=== PATIENT | female | born 1950 | race African-American/Black ===

== ENCOUNTER → 2017-10-13 | Outpatient (CLI) | payer MEDICARE ==
[2016-04-25 14:27] VITALS: BP 169/96
[~2017-10-13] MED LIST: AMLO5TAB2 PO; CLON0.1T PO; METF500T4 PO; NITR100C62 PO; PRED2.5T PO; PRED20TA PO; TACR1CAP4 PO; [UNRECOGNIZED DRUG - OTHER]
--- NOTE | 2017-10-14 08:51 | RAD ---
Indication: Elevated parathyroid hormone. Patient was administered 21.8 mCi of technetium 99m sestamibi and imaging over the neck and upper chest was performed. The early images demonstrate fairly homogeneous uptake within both lobes of the thyroid gland. There is salivary gland uptake as well. Later images demonstrate washout of activity from the thyroid gland. There are 2 areas of persistent rounded uptake. This involves the lower pole of the right lobe as well as the lower pole of the left lobe of the thyroid. These are suspicious for adenomas. There is mild residual uptake in the mid aspect of the right lobe of the thyroid as well, indeterminate. Impression: Findings suspicious for bilateral parathyroid adenomas. These appear to be adjacent to the lower poles of the right and left lobes of the thyroid gland. There is indeterminate activity in the region of the mid aspect of the right lobe of the thyroid.
== END | disposition home or self-care (01) ==
LOC: NM 09:20
PROVIDERS: ATTEND Internal Medicine Nephrology
DX: E21.2 Other hyperparathyroidism (principal)
CPT/HCPCS: 78070; 96374; A9500

== ENCOUNTER → 2017-12-22 | Outpatient (CLI) | payer MEDICARE | END | disposition home or self-care (01) | LOC: KCIC US 14:28 | DX: E04.2 Nontoxic multinodular goiter (principal); E21.2 Other hyperparathyroidism | CPT/HCPCS: 76536 ==

== ENCOUNTER → 2018-05-01 | Outpatient (CLI) | payer MEDICARE | END | disposition home or self-care (01) | LOC: KCIC US 11:32 | DX: Z48.22 Encounter for aftercare following kidney transplant (principal); I12.9 Hypertensive chronic kidney disease with stage 1 through stage 4 chronic kidney disease, or unspecified chronic kidney disease; N18.3 Chronic kidney disease, stage 3 (moderate); E11.9 Type 2 diabetes mellitus without complications; Z94.0 Kidney transplant status | CPT/HCPCS: 76770 ==

== ENCOUNTER 2019-02-14 07:02 | Emergency (ER) | payer MEDICARE ==
[~2019-02-14] VITALS: Ht 170.2 cm; Wt 81.6 kg
[~2019-02-14 07:02] MED LIST changes: +AMLO5TAB10 PO; -AMLO5TAB2 PO; +METF500T16 PO; -METF500T4 PO
[2019-02-14 07:45] LABS: BASO % 1 % (0-3); EOS # 0.1 x10^3/uL (0.0-0.7); EOS % 2 % (0-3); HEMATOCRIT 43.4 % (36.0-47.0); HEMOGLOBIN 14.1 g/dL (12.0-15.5); LYMPH # 1.8 x10^3/uL (1.0-4.8); LYMPH % 31 % (24-48); MEAN CORPUSCULAR HEMOGLOBIN 30 pg (25-35); MEAN CORPUSCULAR HGB CONC 33 g/dL (31-37); MEAN CORPUSCULAR VOLUME 92 fL (79-100); MONO # 0.7 x10^3/uL (0.0-1.1); MONO % 12 % (0-9); NEUT # 3.2 x10^3uL (1.8-7.7); NEUT % 55 % (31-73); PLATELET COUNT 111 x10^3/uL (140-400); RED BLOOD COUNT 4.71 x10^6/uL (3.50-5.40); RED CELL DISTRIBUTION WIDTH 13.4 % (11.5-14.5); WHITE BLOOD COUNT 5.8 x10^3/uL (4.0-11.0)
[2019-02-14 07:56] LABS: CALCIUM 9.9 mg/dL (8.5-10.1); CREATININE 1.8 mg/dL (0.6-1.0); POTASSIUM 3.6 mmol/L (3.5-5.1)
[2019-02-14 08:01] LABS: ALBUMIN 3.8 g/dL (3.4-5.0); ALBUMIN/GLOBULIN RATIO 1.3 (1.0-1.7); TOTAL BILIRUBIN 0.4 mg/dL (0.2-1.0); TOTAL PROTEIN 6.7 g/dL (6.4-8.2)
[2019-02-14 08:15] LABS: BILIRUBIN,URINE NEGATIVE (NEG); CLARITY,URINE CLEAR; COLOR,URINE YELLOW; NITRITE,URINE NEGATIVE (NEG); PROTEIN,URINE 100 mg/dL (NEG-TRACE)
[2019-02-14] MEDS ORDERED: IV NORMAL SALINE 1000ML BAG 1,000 ML IV ONE (08:15)
[2019-02-14] MEDS ORDERED: ONDANSETRON PF 4 MG/2 ML VIAL. IV ONE (08:15)
[2019-02-14 08:18] LABS: BACTERIA,URINE 0 /HPF (0-FEW); RBC,URINE 0 /HPF (0-2); SQUAMOUS EPITHELIAL CELL,UR FEW /LPF
--- NOTE | 2019-02-14 08:32 | PHYS DOC ---
Past Medical History Past Medical History: Hypertension, Renal Disease Additional Past Medical Histor: PT STATES BORDERLINE DIABETES Past Surgical History: Appendectomy, Other Additional Past Surgical Histo: Kidney transplant Alcohol Use: None Drug Use: None Adult General Chief Complaint Chief Complaint: FLANK PAIN [facility] HPI Patient is a 68 year old female who presents with complaining of right flank pain. Patient complaining of intermittent episodes of right flank pain for one month that usually happen in the morning and last for several hours as an aching pain and rated her pain 7/10. Patient states the pain sometimes radiated to right lower quadrant. Patient complaining of nausea without vomiting and urinary frequency and dysuria. Patient complaining of not feeling good and weakness for the last 2 or 3 weeks. Patient denies fever, chills, vomiting, diarrhea and constipation, chest pain and shortness of breath. Patient complaining of decrease of urine output. Patient had history of kidney transplant in 2009 and states she seen by her physician scientist 4 months ago and his creatinine was 1.6. Review of Systems Review of Systems Constitutional: Denies fever or chills [] Eyes: Denies change in visual acuity, redness, or eye pain [] HENT: Denies nasal congestion or sore throat [] Respiratory: Denies cough or shortness of breath [] Cardiovascular: No additional information not addressed in HPI [] GI: Denies abdominal pain, nausea, vomiting, bloody stools or diarrhea [] : Reports dysuria and flank pain Musculoskeletal: Denies back pain or joint pain [] Integument: Denies rash or skin lesions [] Neurologic: Denies headache, focal weakness or sensory changes [] Endocrine: Denies polyuria or polydipsia [] All other systems were reviewed and found to be within normal limits, except as documented in this note. Current Medications Current Medications Current Medications Medications (Trade) Dose Ordered Sig/Clive Start Time Stop Time Status Last Admin Dose Admin Ondansetron HCl (Zofran) 4 mg 1X ONCE 02/14/19 08:15 02/14/19 08:20 DC 02/14/19 08:25 4 MG Sodium Chloride 1,000 ml @ 1,000 mls/hr 1X ONCE 02/14/19 08:15 02/14/19 09:14 02/14/19 08:26 1,000 MLS/HR Allergies Allergies Allergies Coded Allergies Type Severity Reaction Last Updated Verified Sulfa (Sulfonamide Antibiotics) Allergy Unknown 02/14/19 No Physical Exam Physical Exam Constitutional: Well developed, well nourished, mild distress, non-toxic appearance. [] HENT: Normocephalic, atraumatic, oropharynx moist. Eyes: PERRLA, EOMI, conjunctiva normal, no discharge. [] Neck: Normal range of motion, no tenderness, supple, no stridor. [] Cardiovascular:Heart rate regular rhythm, no murmur [] Lungs & Thorax: Bilateral breath sounds clear to auscultation [] Abdomen: Bowel sounds normal, soft, no tenderness, no masses, no pulsatile masses. [] Skin: Warm, dry, no erythema, no rash. [] Back: No tenderness, no CVA tenderness. [] Extremities: No tenderness, no cyanosis, no clubbing, ROM intact, no edema. [] Neurologic: Alert and oriented X 3, normal motor function, normal sensory function, no focal deficits noted. [] Psychologic: Affect normal, judgement normal, mood normal. [] Current Patient Data Vital Signs Vital Signs Date Time Temp Pulse Resp B/P (MAP) Pulse Ox O2 Delivery O2 Flow Rate FiO2 02/14/19 08:30 60 165/88 (113) 99 02/14/19 07:44 97.9 16 Room Air 97.9 Lab Values Laboratory Tests Test 02/14/19 07:30 02/14/19 08:00 White Blood Count 5.8 x10^3/uL (4.0-11.0) Red Blood Count 4.71 x10^6/uL (3.50-5.40) Hemoglobin 14.1 g/dL (12.0-15.5) Hematocrit 43.4 % (36.0-47.0) Mean Corpuscular Volume 92 fL (79-100) Mean Corpuscular Hemoglobin 30 pg (25-35) Mean Corpuscular Hemoglobin Concent 33 g/dL (31-37) Red Cell Distribution Width 13.4 % (11.5-14.5) Platelet Count 111 x10^3/uL (140-400) L Neutrophils (%) (Auto) 55 % (31-73) Lymphocytes (%) (Auto) 31 % (24-48) Monocytes (%) (Auto) 12 % (0-9) H Eosinophils (%) (Auto) 2 % (0-3) Basophils (%) (Auto) 1 % (0-3) Neutrophils # (Auto) 3.2 x10^3uL (1.8-7.7) Lymphocytes # (Auto) 1.8 x10^3/uL (1.0-4.8) Monocytes # (Auto) 0.7 x10^3/uL (0.0-1.1) Eosinophils # (Auto) 0.1 x10^3/uL (0.0-0.7) Basophils # (Auto) 0.0 x10^3/uL (0.0-0.2) Platelet Estimate Pending Sodium Level 139 mmol/L (136-145) Potassium Level 3.6 mmol/L (3.5-5.1) Chloride Level 102 mmol/L (98-107) Carbon Dioxide Level 25 mmol/L (21-32) Anion Gap 12 (6-14) Blood Urea Nitrogen 19 mg/dL (7-20) Creatinine 1.8 mg/dL (0.6-1.0) H Estimated GFR (Cockcroft-Gault) 34.0 BUN/Creatinine Ratio 11 (6-20) Glucose Level 172 mg/dL (70-99) H Lactic Acid Level 1.2 mmol/L (0.4-2.0) Calcium Level 9.9 mg/dL (8.5-10.1) Total Bilirubin 0.4 mg/dL (0.2-1.0) Aspartate Amino Transferase (AST) 15 U/L (15-37) Alanine Aminotransferase (ALT) 21 U/L (14-59) Alkaline Phosphatase 69 U/L (46-116) Total Protein 6.7 g/dL (6.4-8.2) Albumin 3.8 g/dL (3.4-5.0) Albumin/Globulin Ratio 1.3 (1.0-1.7) Lipase 207 U/L (73-393) Urine Color Yellow Urine Clarity Clear Urine pH 7.0 Urine Specific [place] 1.015 Urine Protein 100 mg/dL (NEG-TRACE) Urine Glucose (UA) Negative mg/dL (NEG) Urine Ketones (Stick) Negative mg/dL (NEG) Urine Blood Negative (NEG) Urine Nitrite Negative (NEG) Urine Bilirubin Negative (NEG) Urine Urobilinogen Dipstick 1.0 mg/dL (0.2 mg/dL) Urine Leukocyte Esterase Large (NEG) Urine RBC 0 /HPF (0-2) Urine WBC 5-10 /HPF (0-4) Urine Squamous Epithelial Cells Few /LPF Urine Bacteria 0 /HPF (0-FEW) Laboratory Tests 02/14/19 07:30 Laboratory Tests 02/14/19 07:30 EKG EKG [] Radiology/Procedures Radiology/Procedures [facility] [address] [place] [address] IMAGING REPORT Signed PATIENT: VINI LYNCH ACCOUNT: [id number] : 1950 LOCATION: ER AGE: 68 SEX: F EXAM STATUS: REG ER ORD. PHYSICIAN: NICHOLAS LONGO MD REASON: right flank pain, history of kidney transplant PROCEDURE: CT ABDOMEN PELVIS WO CONTRAST Abdominal and Pelvis CT, Without Contrast: History: Right flank pain, history of renal transplant. Comparison: None. Procedure: Axial images are obtained of the abdomen and pelvis, without IV or oral contrast. CT Abdomen without Contrast: Findings: Evaluation of solid organs is limited without contrast. Evaluation of stomach and bowel is limited without oral contrast. There are numerous cysts scattered throughout the liver and the kidneys consistent with adult polycystic renal disease. A few of the cysts are partially calcified or hemorrhagic. The adrenals spleen and pancreas appear normal. There is no free air or free fluid. There is no lymphadenopathy. Impression: Please see CT Pelvis without Contrast. End Impression. CT Pelvis without Contrast: Findings: The urinary bladder appears normal. There is no free fluid. There is no lymphadenopathy. There is no pericolonic inflammation identified. The bulky fibroid uterus appears unchanged. Mild prominence of the ovaries was not appreciated previously. The right ovary is larger than the left and measures approximately 4.6 x 2.2 cm. There is a right pelvic transplant kidney which appears normal. Impression: 1. Numerous renal cysts and kidney cysts consistent with adult polycystic kidney disease. This appears stable. 2. Transplanted right pelvic kidney appears stable. 3. Bulky fibroid uterus seen previously. 4. Mild prominence of the ovaries bilaterally not appreciate previously could be secondary to ovarian cysts. Recommend correlation with CA-125. End impression PQRS Compliance Statement: One or more of the following individualized dose reduction techniques were utilized for this examination: 1. Automated exposure control 2. Adjustment of the mA and/or kV according to patient size 3. Use of iterative reconstruction technique Electronically signed by: Sagrario Alexandra III, MD (02/14/2019 8:33 AM) [facility] DICTATED and SIGNED BY: SAGRARIO ALEXANDRA III, MD DATE: 02/14/19 0833 Course & Med Decision Making Course & Med Decision Making Pertinent Labs and Imaging studies reviewed. (See chart for details) Dilution of patient in ER showed 68-year-old female patient with history of kidney transplant and complaining of right flank pain and urinary frequency and dysuria for one month. Patient had unremarkable physical exam. Blood pressure was 140s and 160s while she was in ER. Blood tests was unremarkable except for mild elevation of blood sugar. UA showed moderate UTI. CT scan abdomen and pelvis did not show acute finding and showed ovarian cyst with recommendation of more evaluation including CA 125. Patient didn't want to have pain medication in ER and treated with IV fluid and Zofran and felt better. Patient was advised to follow-up with her primary care physician is/[facility] for evaluation of ovarian cysts and follow up with her physician scientist regarding mild elevation of creatinine at 1.8 from the previous one at 1.6. Dragon Disclaimer Dragon Disclaimer This electronic medical record was generated, in whole or in part, using a voice recognition dictation system. Departure Departure Impression: Primary Impression: Right flank pain Additional Impressions: Urinary tract infection Hyperglycemia History of renal transplant Renal insufficiency, mild Ovarian cyst Uncontrolled hypertension Generalized weakness Disposition: 01 HOME, SELF-CARE (at 0900) Condition: IMPROVED Referrals: NO PCP (PCP) Patient Instructions: Flank Pain, Ovarian Cyst, Urinary Tract Infection, Weakness Additional Instructions: Drink plenty of liquids Follow-up with your primary care physician in 3-5 days for evaluation of ovarian cyst Return to ER if not getting better Follow-up with your physician scientist in 2-3 days Scripts Ondansetron Hcl (ZOFRAN) 4 Mg Tablet 1 TAB PO PRN Q6-8HRS for nausea, #12 TAB Prov: NICHOLAS LONGO MD 02/14/19 Hydrocodone/Apap 5-325 (NORCO 5-325 TABLET) 1 Each Tablet 1 TAB PO PRN Q6HRS PRN for PAIN, #10 TAB 0 Refills Prov: NICHOLAS LONGO MD 02/14/19 Ciprofloxacin Hcl (CIPRO) 250 Mg Tablet 1 TAB PO BID for infection, #14 TAB Prov: NICHOLAS LONGO MD 02/14/19 Problem Qualifiers Additional Impressions: Urinary tract infection Urinary tract infection type: site unspecified Hematuria presence: without hematuria Qualified Codes: N39.0 - Urinary tract infection, site not specified Ovarian cyst Laterality: unspecified laterality Qualified Codes: N83.209 - Unspecified ovarian cyst, unspecified side NICHOLAS LONGO MD Feb 14, 2019 08:32
--- NOTE | 2019-02-14 08:36 | RAD ---
Abdominal and Pelvis CT, Without Contrast: History: Right flank pain, history of renal transplant. Comparison: None. Procedure: Axial images are obtained of the abdomen and pelvis, without IV or oral contrast. CT Abdomen without Contrast: Findings: Evaluation of solid organs is limited without contrast. Evaluation of stomach and bowel is limited without oral contrast. There are numerous cysts scattered throughout the liver and the kidneys consistent with adult polycystic renal disease. A few of the cysts are partially calcified or hemorrhagic. The adrenals spleen and pancreas appear normal. There is no free air or free fluid. There is no lymphadenopathy. Impression: Please see CT Pelvis without Contrast. End Impression. CT Pelvis without Contrast: Findings: The urinary bladder appears normal. There is no free fluid. There is no lymphadenopathy. There is no pericolonic inflammation identified. The bulky fibroid uterus appears unchanged. Mild prominence of the ovaries was not appreciated previously. The right ovary is larger than the left and measures approximately 4.6 x 2.2 cm. There is a right pelvic transplant kidney which appears normal. Impression: 1. Numerous renal cysts and kidney cysts consistent with adult polycystic kidney disease. This appears stable. 2. Transplanted right pelvic kidney appears stable. 3. Bulky fibroid uterus seen previously. 4. Mild prominence of the ovaries bilaterally not appreciate previously could be secondary to ovarian cysts. Recommend correlation with CA-125. End impression PQRS Compliance Statement: One or more of the following individualized dose reduction techniques were utilized for this examination: 1. Automated exposure control 2. Adjustment of the mA and/or kV according to patient size 3. Use of iterative reconstruction technique Electronically signed by: Manjeet Yuen III, MD (02/14/2019 8:33 AM) [facility]
[2019-02-14] MEDS ORDERED: HYDR-3164 PO (09:05)
[2019-02-14] MEDS ORDERED: CIPR250T30 PO (09:05)
[2019-02-14] MEDS ORDERED: ONDA4TAB7 PO (09:05)
[2019-02-14 09:08] LABS: PLT ESTIMATE ADEQUATE (ADEQUATE)
[2019-02-14 09:45] VITALS: BP 161/96
== END 2019-02-14 09:50 | disposition home or self-care (01) ==
LOC: ER 07:02
DX: N83.201 Unspecified ovarian cyst, right side (principal); N83.202 Unspecified ovarian cyst, left side; N28.9 Disorder of kidney and ureter, unspecified; R53.1 Weakness; N28.1 Cyst of kidney, acquired; K76.89 Other specified diseases of liver; D25.9 Leiomyoma of uterus, unspecified; I10 Essential (primary) hypertension; R73.9 Hyperglycemia, unspecified; Z94.0 Kidney transplant status; Z90.89 Acquired absence of other organs; Z88.2 Allergy status to sulfonamides
CPT/HCPCS: 36415; 74176; 80053; 81001; 83605; 83690; 85025; 87086; 96374; 99285; J2405; J7030

== ENCOUNTER → 2019-07-06 | Outpatient (CLI) | payer MEDICARE ==
[~2019-07-06] MED LIST changes: +CIPR250T30 PO; +HYDR-3164 PO; +ONDA4TAB7 PO
--- NOTE | 2019-07-06 14:48 | KCIC ---
PELVIS COMPLETE History: Acute pelvic pain for 2 months, ovarian cyst Comparison: February 14, 2019 CT abdomen pelvis exam Findings: Multiple transabdominal sonographic images of the pelvis are submitted. Endometrium measured about 0.3 cm in thickness. There is a mass of the posterior uterus in the myometrium although approximating the endometrium about 2.7 x 3 x 2.5 cm. There is also probably partially calcified mass of the anterior left uterine myometrium about 1.5 x 1.4 x 1.5 cm also in close approximation to the endometrium. There is another mass of the posterior right myometrium up to about 2.5 cm in size. Right ovary measured 2.2 x 1.1 x 1.4 cm, normal low resistance vascularity. Left ovary could not be visualized. No free fluid is demonstrated. Impression: 1. There are uterine masses, leiomyomas considered most likely. 2. Left ovary could not be visualized. Electronically signed by: Melo Wheeler MD (07/06/2019 2:45 PM) [id number]
== END | disposition home or self-care (01) ==
LOC: KCIC US 09:22
PROVIDERS: ATTEND Obstetrics & Gynecology
DX: N85.8 Other specified noninflammatory disorders of uterus (principal)
CPT/HCPCS: 76856

== ENCOUNTER 2020-11-14 09:24 | Emergency (ER) | payer MEDICARE ==
[~2020-11-14] VITALS: Ht 172.7 cm; Wt 74.0 kg
[~2020-11-14 09:24] MED LIST changes: +AMLO-186 PO; -AMLO5TAB10 PO; -TACR1CAP4 PO; +TACR1CAP5 PO
[2020-11-14] MEDS ORDERED: ONDANSETRON PF 4 MG/2 ML VIAL. IVP ONE (10:00)
--- NOTE | 2020-11-14 10:04 | PHYS DOC ---
Past Medical History Past Medical History: Hypertension, Renal Disease, Other Additional Past Medical Histor: PT STATES BORDERLINE DIABETES, Polycystic kidney disease. Past Surgical History: Appendectomy, Other Additional Past Surgical Histo: Kidney transplant Smoking Status: Never Smoker Alcohol Use: None Drug Use: None General Adult EDM: Chief Complaint: NAUSEA/VOMITING/DIARRHA HPI: HPI: Patient is a 70 year old female presents emergency department complaining of nausea for the past 2 weeks, patient states she has seen her kidney transplant doctor and her visualizer last Friday who sent her to [facility] for some lab work. Patient states she did not do this because she feels like there is something more going on that she decided to come to the emergency room to figure it out. Patient states that she has periods of constipation, has not seen any blood in her stool, however sees bright red blood when she wipes. Patient states she does not know if it is coming vaginally or from her rectum. Patient denies any urinary tract infection type signs and symptoms, denies seeing blood in her urine. Patient states she has been having off-and-on chest pains and off-and-on shortness of breath for the past month or so. Patient denies chest pain, denies shortness of breath at this time. Patient patient states she gets nasal congestion and chest congestion off and on for the past couple of months. Patient denies any nasal congestion or chest congestion today. Patient states she gets off-and-on headaches for the past month or so but denies headaches today. Patient reports she had a kidney transplant with an appendectomy in May of 2010. Patient denies any recent fever or chills. Patient denies swelling to her extremities. Patient denies back pain. Review of Systems: Review of Systems: Constitutional: Denies fever or chills. [] Eyes: Denies change in visual acuity. [] HENT: Denies nasal congestion or sore throat. [] Respiratory: Denies cough or shortness of breath. [] Cardiovascular: Denies chest pain or edema. [] GI: Denies abdominal pain, nausea, vomiting, bloody stools or diarrhea. [] : Denies dysuria. [] Musculoskeletal: Denies back pain or joint pain. [] Integument: Denies rash. [] Neurologic: Denies headache, focal weakness or sensory changes. [] Endocrine: Denies polyuria or polydipsia. [] Lymphatic: Denies swollen glands. [] Psychiatric: Denies depression or anxiety. [] Heart Score: HEART Score for Chest Pain: HEART Score for Chest Pain Response (Comments) Value History Slighlty/Non-Suspicious 0 ECG Normal 0 Age > 65 2 Risk Factors No Risk Factors 0 Troponin < Normal Limit 0 Total 2 Risk Factors: Risk Factors: DM, Current or recent (<one month) smoker, HTN, HLP, family history of CAD, obesity. Risk Scores: Score 0 - 3: 2.5% MACE over next 6 weeks - Discharge Home Score 4 - 6: 20.3% MACE over next 6 weeks - Admit for Clinical Observation Score 7 - 10: 72.7% MACE over next 6 weeks - Early Invasive Strategies Current Medications: Please see nursing documentation for current med list. Current Medications Medications (Trade) Dose Ordered Sig/Clive Start Time Stop Time Status Last Admin Dose Admin Ondansetron HCl (Zofran) 4 mg 1X ONCE 11/14/20 10:00 11/14/20 10:01 UNV Allergies: Allergies: Allergies Coded Allergies Type Severity Reaction Last Updated Verified Sulfa (Sulfonamide Antibiotics) Allergy Unknown 02/14/19 No Physical Exam: PE: Constitutional: Well developed, well nourished, no acute distress, non-toxic appearance. HENT: Normocephalic, atraumatic, bilateral external ears normal, oropharynx moist, no oral exudates, nose normal. Eyes: PERRLA, EOMI, conjunctiva normal, no discharge. Neck: Normal range of motion, no tenderness, supple, no stridor. Cardiovascular:Heart rate irregular regular rhythm, no murmur. Lungs & Thorax: Bilateral breath sounds clear to auscultation all lung singh. Abdomen: Bowel sounds normal, soft, no tenderness, no masses, no pulsatile masses. Old surgical scar right lower quadrant area. Skin: Warm, dry, no erythema, no rash. Back: No tenderness, no CVA tenderness. Extremities: No tenderness, no cyanosis, no clubbing, ROM intact, no edema. Neurologic: Alert and oriented X 3, normal motor function, normal sensory function, no focal deficits noted. Psychologic: Affect normal, judgement normal, mood normal. Current Patient Data: Labs: Laboratory Tests Test 11/14/20 10:27 11/14/20 11:00 White Blood Count 3.6 x10^3/uL Red Blood Count 4.50 x10^6/uL Hemoglobin 13.4 g/dL Hematocrit 41.8 % Mean Corpuscular Volume 93 fL Mean Corpuscular Hemoglobin 30 pg Mean Corpuscular Hemoglobin Concent 32 g/dL Red Cell Distribution Width 14.4 % Platelet Count 112 x10^3/uL Neutrophils (%) (Auto) 66 % Lymphocytes (%) (Auto) 19 % Monocytes (%) (Auto) 13 % Eosinophils (%) (Auto) 1 % Basophils (%) (Auto) 0 % Neutrophils # (Auto) 2.4 x10^3/uL Lymphocytes # (Auto) 0.7 x10^3/uL Monocytes # (Auto) 0.5 x10^3/uL Eosinophils # (Auto) 0.0 x10^3/uL Basophils # (Auto) 0.0 x10^3/uL Sodium Level 139 mmol/L Potassium Level 3.8 mmol/L Chloride Level 108 mmol/L Carbon Dioxide Level 21 mmol/L Anion Gap 10 Blood Urea Nitrogen 15 mg/dL Creatinine 1.8 mg/dL Estimated GFR (Cockcroft-Gault) 33.8 BUN/Creatinine Ratio 8 Glucose Level 152 mg/dL Calcium Level 8.9 mg/dL Phosphorus Level 2.1 mg/dL Magnesium Level 1.3 mg/dL Total Bilirubin 0.4 mg/dL Aspartate Amino Transf (AST/SGOT) 18 U/L Alanine Aminotransferase (ALT/SGPT) 24 U/L Alkaline Phosphatase 75 U/L Troponin I Quantitative < 0.017 ng/mL Total Protein 5.0 g/dL Albumin 2.9 g/dL Albumin/Globulin Ratio 1.4 Urine Collection Type Clean catch Urine Color Yellow Urine Clarity Clear Urine pH 6.5 Urine Specific [place]ola 1.010 Urine Protein >=300 mg/dL Urine Glucose (UA) Negative mg/dL Urine Ketones (Stick) Negative mg/dL Urine Blood Negative Urine Nitrite Negative Urine Bilirubin Negative Urine Urobilinogen Dipstick 0.2 mg/dL Urine Leukocyte Esterase Negative Urine RBC 0 /HPF Urine WBC 0 /HPF Urine Squamous Epithelial Cells Occ /LPF Urine Bacteria 0 /HPF Urine Mucus Slight /LPF Current Medications Medications (Trade) Dose Ordered Sig/Clive Route PRN Reason Start Time Stop Time Status Last Admin Dose Admin Ondansetron HCl (Zofran) 4 mg 1X ONCE IVP 11/14/20 10:00 11/14/20 10:01 DC 11/14/20 10:31 EKG: EKG: EKG performed at 0 958 by ED nursing staff, heart rate 74 bpm normal sinus rhythm with occasional PACs, [place] interval 0.152, QTc interval 0.398, no acute STEMI, no ACS, no acute ischemia appreciated, EKG interpreted by ED attending physician Dr. Butcher [] Radiology/Procedures: Radiology/Procedures: [] Course & Med Decision Making: Course & Med Decision Making Pertinent Labs and Imaging studies reviewed. (See chart for details) 70-year-old female, vital signs reviewed, presents emergency department with multiple complaints. Patient's physical exam unremarkable. EKG, cardiac work- up, constipation work-up was started in the ED, patient was given 4 mg Zofran for nausea. During patient's rectal exam to obtain stool for occult blood, no stool in the rectal vault to obtain specimen, patient stated that she has not noticed any blood on the toilet paper after wiping for greater than 2 months now. Patient's labs equivocal, white blood cell count low most likely related to immunosuppressive medication status post kidney transplant, will have patient follow-up with primary care for further investigation. Upon reevaluation of the patient, patient states her nausea has been relieved and she feels much better now patient now denies any physical complaints or physical symptoms. Discussed radiological findings of constipation with patient, will start on Colace for constipation, patient gave verbal understanding of prescription medication use, follow-up with primary care soon, home care instructions, return to ER precautions and concerns, patient discharged home without incident. Impression: #1 nausea #2 constipation #3 leukopenia #4 PUI Dragon Disclaimer: [place] Disclaimer: This electronic medical record was generated, in whole or in part, using a voice recognition dictation system. Departure Departure Impression: Primary Impression: Nausea Additional Impressions: Constipation Qualified Codes: K59.00 - Constipation, unspecified Leukopenia Qualified Codes: D72.819 - Decreased white blood cell count, unspecified Person under investigation for COVID-19 Disposition: 01 DC HOME SELF CARE/HOMELESS Condition: IMPROVED Referrals: SIIDRO RICHARDS MD (PCP) Patient Instructions: Constipation, Adult Additional Instructions: Take medications as prescribed, follow-up with your primary care doctor soon, please go to [facility] and have your lab work drawn as directed by your neph rologist, please call both your primary care doctor and your visualizer and your kidney transplant physician to let them know you have been started on Colace for constipation. Return to the emergency department for worsening symptoms or other concerns. You have been tested for the COVID-19 virus today, your results should be done within the next 48 hours. I have attached to this document instructions related to the COVID-19 virus. EMERGENCY DEPARTMENT GENERAL DISCHARGE INSTRUCTIONS Thank you for coming to [facility] Emergency Department (ED) today and trusting us with you care. We trust that you had a positive experience in our Emergency Department. If you wish to speak to the department management, you may call the Director at [phone]. YOUR FOLLOW UP INSTRUCTIONS ARE FOLLOWS: 1. Do you have a private Doctor? If you do not have a private doctor, please ask for a resource list of physicians or clinics that may be able to assist you with follow up care. 2. The Emergency Physicain has interpreted your x-rays. The X-Ray specialist will also review them. If there is a change in the findings, you will be notified in 48 hours when at all possible. 3. A lab test or culture has been done, your results will be reviewed and you will be notified if you need a change in treatment. ADDITIONAL INSTRUCTIONS AND INFORMATION: 1. Your care today has been supervised by a physician who is specially trained in emergency care. Many problems require more than one evaluation for a complete diagnosis and treatment. We recommend that you schedule your follow up appointment as recommended to ensure complete treatment of you illness or injury. If you are unable to obtain follow up care and continue to have a problem, or if your condition worsens, we recommend that you return to the ED. 2. We are not able to safely determine your condition over the phone nor are we able to give sound medical advice over the phone. For these safety reasons, if you call for medical advice we will ask you to come to the ED for further evaluation. 3. If you have any questions regarding these discharge instructions please call the ED at [phone]. SAFETY INFORMATION: In the interest of safety, wellness, and injury prevention; we encourage you to wear your sealbelt, if you smoke; quite smoking, and we encourage family to use a protective helmet for bicycling and other sporting events that present an increased risk for head injury. IF YOUR SYMPTOMS WORSEN OR NEW SYMPTOMS DEVELOP, OR YOU HAVE CONCERNS ABOUT YOUR CONDITION; OR IF YOUR CONDITION WORSENS WHILE YOU ARE WAITING FOR YOUR FOLLOW UP APPOINTMENT; EITHER CONTACT YOUR PRIMARY CARE DOCTOR, THE PHYSICIAN WHOSE NAME AND NUMBER YOU WERE GIVEN, OR RETURN TO THE ED IMMEDIATELY. You have been tested for or diagnosed with COVID-19. It is an infection caused by a new type of coronavirus. COVID-19 will cause cold-like or mild flu symptoms in most. It can cause more severe symptoms like problems breathing in some. There is no treatment for COVID-19. The body will clear the infection over time. Self-care will help to ease discomfort. Steps to Take: Self-Care Rest as needed. Healthy habits may help you feel better. Steps include: Choose healthy foods including fruits and vegetables. Drink water throughout the day. Get plenty of sleep each night. If you smoke, try to quit. It may ease breathing. Avoid alcohol. Keep Others Healthy The virus can spread to others. Droplets are released every time you sneeze or cough. The droplets can get into the mouth, nose, or eyes of people near you and lead to infection. To lower the chances of spreading COVID-19 to others: Stay at home until your doctor has said it is safe to leave. If you tested positive this will mean staying isolated until both of the following are true: At least 7 days have passed since the start of illness. You are free of fever for at least 72 hours without the use of medicine. During this time: - Avoid public areas, events, or transportation. Do not return to work or school until your doctor has said it is safe to do so. - Call ahead if you need to go to a medical center. Let them know you may have COVID-19. It will help them guide you where to go. They may also ask you to wear a facemask when you come to the office. - If you call for emergency medical services, let them know you may have COVID- 19. While at home: - Try to avoid close contact with others. Stay about 6 feet away. - If possible, spend most of your time in a separate room from others. - Use a face mask if you will be in close contact with others such as sharing a room or vehicle. - Have someone wipe down common surfaces in the home. Use household product tester fiberglass every day on areas like doorknobs, counters, or sinks. - Cough or sneeze into a tissue. Throw the tissue away right after use. If a tissue is not available, cough or sneeze into your elbow. - Wash your hands often. Wash them after sneezing or coughing. Use soap and water and wash for at least 20 seconds. Alcohol based hand barrel loader and cleaner can be used if soap and water is not available. - Do not prepare food for others. Avoid sharing personal items like forks, spoons, or toothbrushes. - Avoid close contact with pets while you are sick. There is no evidence of the virus passing to pets. This is a safety step until more is known about this virus. Isolation can be frustrating. Social interaction can help. Keep in touch with friends and family through phone and tech options. You can still interact with others in your home, just keep a safe distance of about 6 feet. Follow-up: Your doctors office will check in with you to see if there are any changes in your health. You may be asked to keep track of symptoms to share with them. They will also let you know when you are clear to be in public again. Problems to Look Out For: Contact your doctor if your recovery is not going as you expect. Get emergency care if you have problems such as: - Trouble breathing - Nonstop chest pain or pressure - Changes in awareness, confusion, or problems waking - Lips or face have bluish color - Worsening of symptoms If you think you have an emergency, call for emergency medical services right away. As taken from [facility] Health Scripts Sennosides/Docusate Sodium (Colace 2-in-1 Tablet) 1 Each Tablet 1 TAB PO QHS for CONSTIPATION for 30 Days, #30 TAB 0 Refills Prov: RAJWINDER GONSALEZ APRN 11/14/20 RAJWINDER GONSALEZ APRN Nov 14, 2020 10:04
[2020-11-14 10:45] LABS: CALCIUM 8.9 mg/dL (8.5-10.1); CREATININE 1.8 mg/dL (0.6-1.0); GFR 33.8; POTASSIUM 3.8 mmol/L (3.5-5.1)
[2020-11-14 10:51] LABS: ALBUMIN 2.9 g/dL (3.4-5.0); ALBUMIN/GLOBULIN RATIO 1.4 (1.0-1.7); MAGNESIUM 1.3 mg/dL (1.8-2.4); PHOSPHORUS 2.1 mg/dL (2.6-4.7); TOTAL BILIRUBIN 0.4 mg/dL (0.2-1.0)
[2020-11-14 10:58] LABS: BASO % 0 % (0-3); EOS % 1 % (0-3); HEMATOCRIT 41.8 % (36.0-47.0); HEMOGLOBIN 13.4 g/dL (12.0-15.5); LYMPH # 0.7 x10^3/uL (1.0-4.8); LYMPH % 19 % (24-48); MEAN CORPUSCULAR HEMOGLOBIN 30 pg (25-35); MEAN CORPUSCULAR HGB CONC 32 g/dL (31-37); MEAN CORPUSCULAR VOLUME 93 fL (79-100); MONO # 0.5 x10^3/uL (0.0-1.1); MONO % 13 % (0-9); NEUT # 2.4 x10^3/uL (1.8-7.7); NEUT % 66 % (31-73); PLATELET COUNT 112 x10^3/uL (140-400); RED CELL DISTRIBUTION WIDTH 14.4 % (11.5-14.5); WHITE BLOOD COUNT 3.6 x10^3/uL (4.0-11.0)
--- NOTE | 2020-11-14 11:00 | RAD ---
Single view abdomen Indication constipation and nausea COMPARISON: Abdomen pelvis CT without IV contrast 02/14/2019 FINDINGS: Large amount of formed stool is present in the visualized large bowel. No dilated gas-filled bowel lo ops and no air-fluid levels are seen. Scattered pelvic calcifications compatible with phleboliths and uterine leiomyoma calcifications as well as abdominal and pelvic arteriovascular calcifications are noted. Bones show levoscoliosis of the lumbar spine and left greater than right severe bilateral hip degenerative changes. IMPRESSION: Large volume of stool in the visualized abdomen, compatible with constipation. No radiographic eviden ce of bowel obstruction or perforation Electronically signed by: Urmila Storey MD (11/14/2020 10:57 AM) [id number]
[2020-11-14 11:30] LABS: BILIRUBIN,URINE NEGATIVE (NEG); CLARITY,URINE CLEAR; COLOR,URINE YELLOW; NITRITE,URINE NEGATIVE (NEG); PH,URINE 6.5 (<5.0-8.0); PROTEIN,URINE >=300 mg/dL (NEG-TRACE); UROBILINOGEN,URINE 0.2 mg/dL (0.2 mg/dL)
[2020-11-14 11:47] LABS: BACTERIA,URINE 0 /HPF (0-FEW); RBC,URINE 0 /HPF (0-2); WBC,URINE 0 /HPF (0-4)
[2020-11-14 12:11] VITALS: BP 139/80
[2020-11-14] MEDS ORDERED: SENN-121 PO (12:36)
--- NOTE | 2020-11-15 09:45 | NUR ---
IP: Informed pt of negative COVID test. Pt verbalized understanding.
--- NOTE | 2020-11-15 12:07 | EKG ---
[facility] [address] [place] [address] Test Date: 2020-11-14 Test Time: 09:58:36 Pat Name: VINI LYNCH Department: Room: Gender: F [employer]: KHUSHBU : 1950 Requested By: RAJWINDER GONSALEZ Order Number: [id number] Reading MD: Measurements Intervals [place] Rate: 74 P: 41 OK: 152 QRS: 1 QRSD: 90 T: 3 QT: 358 QTc: 398 Interpretive Statements SINUS RHYTHM VENTRICULAR PREMATURE COMPLEX(ES) ATRIAL PREMATURE COMPLEX(ES) ABNORMAL ECG RI6.02 No previous ECG available for comparison
== END 2020-11-14 13:00 | disposition home or self-care (01) ==
LOC: ER 09:24
DX: R11.0 Nausea (principal); K59.00 Constipation, unspecified; D72.819 Decreased white blood cell count, unspecified; Z20.828 Contact with and (suspected) exposure to other viral communicable diseases; I10 Essential (primary) hypertension; Q61.3 Polycystic kidney, unspecified; Z90.89 Acquired absence of other organs; Z94.0 Kidney transplant status; Z88.2 Allergy status to sulfonamides
CPT/HCPCS: 36415; 74018; 80053; 81001; 83735; 84100; 84484; 85025; 93005; 96374; 99285; C9803; J2405; U0003